=== PATIENT | male | born 1940 | race Caucasian/White ===

== ENCOUNTER → 2017-09-16 | Outpatient (REF) | payer MEDICARE, BC ==
[~2017-09-16] MED LIST: ACE3 PO; DILT120T13 PO; FINA5TAB67 PO; LEVO25TA61 PO; METH4TAB66 PO; NYST1POW24 PO; ROPI1TAB36 PO; ROS10 PO; WARF5TAB23 PO
== END ==
LOC: ZZSENDIN 13:44
PROVIDERS: ATTEND Ophthalmology
DX: C44.119 Basal cell carcinoma of skin of left eyelid, including canthus (principal)
CPT/HCPCS: 88305

== ENCOUNTER 2019-01-03 01:16 | Day surgery (SDC) | payer MEDICARE, BC ==
[2018-12-30 10:11] LABS: PLATELET COUNT, AUTOMATED 235 K/uL (150-450)
[2018-12-30 10:32] LABS: INR 0.99
[~2019-01-03] VITALS: Ht 170.2 cm; Wt 73.0 kg
[2019-01-03] VITALS (12 sets, daily range): BP systolic 121–148; BP diastolic 75–87
[~2019-01-03 01:16] MED LIST changes: +CIPR-214 PO; +DILT-102 PO; +MIRA50TA PO; +PRAM1TAB22 PO; -ROS10 PO; +ROSU10TA PO; +TOLT2TAB PO
[2019-01-03] MEDS ORDERED: FAMOTIDINE 20 MG TAB PO ONE (06:30)
[2019-01-03] MEDS ORDERED: NORMOSOL R SOLN(*) 1000 ML BAG 1,000 ML IV PRN (06:30)
[2019-01-03] MEDS ORDERED: MIDAZOLAM 2 MG/2 ML VIAL IVP PRN (06:30)
[2019-01-03] MEDS ORDERED: LIDOCAINE/SOD BICARB 8.4% SYR ID ONE (06:30)
[2019-01-03] MEDS ORDERED: LEVOFLOXACIN/D5W*500 MG/100 ML 100 ML IVPB ONE (06:30)
[2019-01-03] MEDS ORDERED: fentaNYL CITR 100 MCG/2 ML AMP ONE (06:57)
[2019-01-03] MEDS ORDERED: ONDANSETRON 4 MG/2 ML VIAL ONE (06:57)
[2019-01-03] MEDS ORDERED: PROPOFOL EMUL(*) 10MG/ML 20 ML 20 ML ONE (06:57)
[2019-01-03] MEDS ORDERED: DEXAMETHASONE SOD 4 MG/ML VIAL ONE (06:57)
[2019-01-03] MEDS ORDERED: LIDOCAINE MPF 1% 5 ML VIAL ONE (06:57)
[2019-01-03 06:58] LABS: INR 1.01
[2019-01-03] MEDS ORDERED: KETAMINE HCL 200 MG/20 ML MDV ONE (07:08)
[2019-01-03] MEDS ORDERED: MIDAZOLAM 2 MG/2 ML VIAL ONE (07:18)
[2019-01-03] MEDS ORDERED: BELLADONNA ALK/OPIUM 60MG SUPP PR ONE (07:50)
--- NOTE | 2019-01-03 08:42 | Urology Discharge Summary ---
Discharge Summary Reason for Hosp/Final Diag: (1) BPH w urinary obs/LUTS Status: Resolved Departure Weight (Pounds): 161 Result Diagram: 12/30/18 1003 Condition: Improved Discharge: Home Discharge Instructions Home Meds Reported Medications Diltiazem Hcl (CARTIA XT) 120 Mg Cap.er.24h, 120 MG PO 12/09/18 Pramipexole Di-Hcl (MIRAPEX) 1 Mg Tablet, 1 MG PO TID 12/09/18 Levothyroxine Sodium (LEVOTHYROXINE SODIUM) 25 Mcg Tablet, 25 MCG PO QDAY 12/17/15 Rosuvastatin Calcium (CRESTOR) 10 Mg Tab, 10 MG PO 2XW, #5 TAB 12/17/15 Warfarin Sodium (WARFARIN SODIUM) 5 Mg Tablet, 5 MG PO QDAY, TAB 12/17/15 Discontinued Reported Medications Finasteride (FINASTERIDE) 5 Mg Tablet, 5 MG PO QDAY 12/17/15 Discontinued Scripts Mirabegron (MYRBETRIQ) 50 Mg Tab.er.24h, 50 MG PO DAILY for 30 Days, #30 CAP 3 Refills Prov:SAHIL DIXON MD 12/09/18 Diet: Regular Activity: As Tolerated, No Exertion, No Driving Venous Thromboembolism Antithrombotics Is Pt On Any Antithrombotics?: No Prophylaxis Tx Contraindicated Pharmacological Contraindicati: Surgical Contraindication Mechanical Contraindications: Surgical Contraindication SAHIL DIXON MD Jan 03, 2019 08:42
[2019-01-03] MEDS ORDERED: NS 0.9% 3000 ML IRRIGATION BAG 3,000 ML IR ONE (10:00)
--- NOTE | 2019-01-03 12:14 | NUR ---
1115 SBAR REPORT WAS RECEIVED FROM Zackary MESA. PATIENT IS BREATHING SPONTANEOUSLY AT A MODERATE RATE AND DEPTH. HE IS RECEIVING O2 THROUGH HIS TRACH VIA AN OXYMASK. BOWEL SOUNDS ARE HYPOACTIVE. HE HAS A [address] THAT IS DRAINING PINK URINE. HE DENIES ANY PAIN OR NAUSEA. HE IS KEO AND SLIGHTLY IRREG. HE IS ABLE TO MOVE HIS LEGS BUT NOT HIS TOES. SPINAL LEVEL IS AT L5. SEE ADMISSION ASSESSMENT. 1130 PATIENT BEGAN EATING CHEESE AND CRACKERS AND APPLESAUCE AND HE IS TOLERATING THIS WELL. CBI FLUID WAS SLOWED DOWN SLIGHTLY AT URINE IS BECOMING MORE CLEAR. HE IS WIGGLING HIS LEGS. 1145 PATIENT DID NOT LIKE THE OXYMASK BECAUSE IT WAS DIFFICULT TO TALK WITH. I FOUND AN ADAPTOR FOR HIS TRACH AND THIS WAS SWITCHED OVER TO THE PATIENTS PERSONAL TRACH MASK. HE IS TOLERATING THIS WELL. HE WANTED TO REMOVED THE BUTTON ON HIS TRACH THINKING THIS WELL HELP HIM BREATHE BETTER. HE STATES HE DOES THIS FREQUENTLY. 1153 SBAR REPORT WAS GIVEN TO Zackary MESA. 1217 SBAR REPORT WAS RECEIVED FROM LEE CARRILLO.
--- NOTE | 2019-01-03 12:29 | NUR ---
1225 PATIENT WAS MOVED DOWN TO 1 LITERS O2
--- NOTE | 2019-01-03 13:04 | NUR ---
1242 WENT OVER DC INSTRUCTIONS WITH PATIENT. PATIENT AND FAMILY VERBALIZED UNDERSTANDING. [address] DIXON STATED FOR HIM TO RESUME WARFARIN IN 2 WEEKS AND STATED PATIENT CAN TAKE TYLENOL FOR PAIN. PATIENT VERBALIZED UNDERSTANDING.
--- NOTE | 2019-01-03 13:12 | NUR ---
1355 EMPTIED 2625 OF REDDISH PINK URINE FROM العلي CATHETER.
--- NOTE | 2019-01-03 13:13 | NUR ---
1313 PATIENT STATES HIS BOTTOM IS SLIGHTLY NUMB. STATED WE WILL SHUT OF CBI FLUID AND SEE HOW URINE LOOKS AND SEE ABOUT POSSIBLY STANDING IN HALF AN HOUR
--- NOTE | 2019-01-03 14:40 | NUR ---
1345 PATIENT STATED HIS HE IS ABLE TO FEEL HIS BOTTOM AND HE IS NO LONGER FEELING NUMB. 1348 PATIENT WAS MOVED TO A LEG BAG CATHETER. 1351 BEGAN DOING ORTHOSTATICS WITH PATIENT. GAIT BELT WAS APPLIED WHILE SITTING. HE DENIES ANY DIZZINESS OR LIGHTHEADEDNESS. 1355 PATIENT BEGAN STANDING. HE WAS STABLE ON HIS FEET. 1357 PATIENT WAS MOVED TO PORTABLE OXYGEN AND WE WALKED AROUND THE PERIOP AREA. HE WAS ABLE TO WALK AND MOVE WITHOUT DIFFICULTIES. 1405 RETURNED BACK TO THE PERIOP AREA. 1410 PATIENT BEGAN GETTING DRESSED 1415 WENT OVER INSTRUCTIONS HOW WHEN TO USE THE LEG BAG CATHETER AND AND HOW TO WHICH CATHETERS OUT AND TO KEEP CATHETER BELOW BLADDER LEVEL. ALSO EXPLAINED TO USE INDWELLING DURING THE NIGHT. EXPLAINED ON HOW TO USE CLEAN THE CATHETER AND HOW TO USE THE PLUGS AND EMPTY THE URINE FROM CATHETER AND HOW TO USE THE CATH SECURE. THEY VERBALIZED UNDERSTANDING. 1435 IV WAS DC'D WITH CATH INTACT 1440 PATIENT WAS TAKEN VIA WHEELCHAIR. HE DENIES ANY PAIN OR NAUSEA. LUNGS ARE CLEAR. BOWEL SOUNDS ARE HYPOACTIVE. HE HAS A SMALL AMOUNT OF DRIED BLOOD ON THE TIP OF HIS MEATUS. HIS URINARY CATHETER IS DRAINING PEACHY RED BLOOD. THERE WAS NO VISIBLE BLOOD CLOTS IN THE URINARY BAG. SEE DISCHARGE ASSESSMENT.
--- NOTE | 2019-01-04 11:14 | OPERATIVE REPORT 1 ---
EVENT DATE: January 03, 2019 SURGEON: Duong Shankar MD ANESTHESIOLOGIST: Ed King MD ANESTHESIA: Spinal. BRAND AMBASSADOR: None. PREOPERATIVE DIAGNOSIS Benign prostatic hypertrophy with lower urinary tract symptoms. POSTOPERATIVE DIAGNOSIS Benign prostatic hypertrophy with lower urinary tract symptoms. PROCEDURE PERFORMED Bipolar transurethral resection of the prostate. DESCRIPTION OF PROCEDURE The patient was brought to the operating room and after the adequate induction of spinal anesthesia he was placed in the relaxed dorsal lithotomy position. Genitalia were scrubbed, prepped and draped in a sterile fashion. The bladder was examined with the cystoscope. Trilobar hypertrophy was once again demonstrated. No intravesical abnormalities were seen within the bladder. Using the resectoscope element, the intravesical component was resected circumferentially and then attention turned to the left lobe of the prostate, which was resected from the bladder neck distally to the verumontanum. The right lobe was then resected in a similar fashion. The roof tissue was resected to the mid gland and lastly the tissue in front of the verumontanum resected. All the chips were evacuated with the eBrisk Video evacuator and then the button device was used to obtain hemostasis and ablate any residual adenoma within the prostatic fossa. Once accomplished, there was no remaining visual obstruction from the veru to the bladder neck. Once hemostasis was achieved, a 22-Senegalese, 30 cc, three-way French catheter was passed into the bladder and connected to continuous irrigation. A B and O suppository was administered. He was aroused from his anesthetic and transported to PACU in stable condition. YASIR
[2019-01-05] MEDS ORDERED: SULF-198 PO (09:29)
== END 2019-01-03 10:38 | disposition home or self-care (01) ==
LOC: OR 01:16
PROVIDERS: ATTEND Urology
DX: N40.1 Benign prostatic hyperplasia with lower urinary tract symptoms (principal); E03.9 Hypothyroidism, unspecified; I48.2 Chronic atrial fibrillation; Z79.01 Long term (current) use of anticoagulants
CPT/HCPCS: 36415; 52648; 85025; 85610; 88305; A4346; A9270; J1100; J1956; J2001; J2250; J2405; J2704; J3010; J3490

== ENCOUNTER → 2019-02-15 | Outpatient (CLI) | payer MEDICARE, BC ==
[~2019-02-15] MED LIST changes: +SULF-198 PO
== END ==
LOC: LAB 09:20
PROVIDERS: ATTEND Urology
DX: R30.0 Dysuria (principal)
CPT/HCPCS: 81001; 87088